=== PATIENT | male | born 1960 | race Caucasian/White ===

== ENCOUNTER 2018-09-22 12:43 | Emergency (ER) | payer MEDICARE, MEDICAID ==
[~2018-09-22] VITALS: Ht 170.2 cm; Wt 119.4 kg
[2018-09-22 12:51] VITALS: Ht 170.2 cm; Wt 119.4 kg
[2018-09-22] MEDS ORDERED: SODIUM CHLORIDE 0.9% 1L BAG IV* STA (13:08)
[2018-09-22] MEDS ORDERED: CEFEPIME 2GM/50 ML (PMX) 50 ML IVPB STA (13:08)
[2018-09-22] MEDS ORDERED: VANCOMYCIN 1 GM (PMX) 250 ML IVPB ONE (13:30)
[2018-09-22] MEDS ORDERED: ACETAMINOPHEN 500 MG TAB PO STA (13:45)
[2018-09-22] MEDS ORDERED: IOHEXOL 300MG/ML 150 ML BTL ONE (14:02)
[2018-09-22] MEDS ORDERED: SOD CHLORIDE 0.9% 100 ML ONE (14:03)
--- NOTE | 2018-09-22 14:03 | ERD ---
ER Documentation Chief Complaint Chief Complaint c/o fever x3 days, denies other symptoms HPI This is a 58-year-old male who says he has had fever for 3 days. The onset was with some abdominal and back pain which she says is gone now. He has no cough no dysuria no nausea vomiting but does have some diarrhea. Has some mild diffus e body aches and arthralgias. Some decrease in appetite. No headache no photophobia no neck pain ROS All systems reviewed and are negative except as per history of present illness. Medications Home Meds Reported Medications Duloxetine Hcl* (Duloxetine Hcl*) 30 Mg Capsule.dr, 30 MG PO DAILY, #30 CAP NOT STARTED TO TAKING YET 09/22/18 Levetiracetam* (Keppra*) 500 Mg Tablet, 500 MG PO BID, TAB 09/22/18 Alprazolam* (Xanax*) 0.5 Mg Tab, 0.5 MG PO DAILY PRN for ANXIETY, TAB 09/22/18 Lisinopril* (Lisinopril*) 10 Mg Tablet, 10 MG PO BID, #30 TAB 09/22/18 Allergies Allergies: Coded Allergies: No Known Allergy (Unverified , 09/22/18) PMhx/Soc Medical and Surgical Hx: pt denies Surgical Hx Hx Cardiac Disorders: Yes (HTN) Hx Alcohol Use: No Hx Substance Use: No Hx Tobacco Use: No Smoking Status: Never smoker FmHx Family History: No coronary disease Physical Exam Vitals Vital Signs Date Temp Pulse Resp B/P (MAP) Pulse Ox O2 O2 Flow FiO2 Time Delivery Rate 09/22/18 101.4 115 17 101/59 98 Room Air 15:35 (73) 09/22/18 103.1 14:01 09/22/18 103.1 13:56 09/22/18 102.7 129 20 130/65 96 12:51 (86) Physical Exam Const: Well-developed, well-nourished Head: Atraumatic, normocephalic Eyes: Normal Conjunctiva, PERRLA, EOMI, normal sclera, no nystagmus ENT: Normal External Ears, Nose and Mouth, moist mucus membranes. Neck: Full range of motion. No meningismus, no lymphadenopathy. Resp: Clear to auscultation bilaterally, no wheezing, rhonchi, rales Cardio: Regular rate and rhythm, no murmurs, S1 S2 present Abd: Soft, mild diffuse tenderness, non distended. Normal bowel sounds, no guarding or rebound, no pulsitile abdominal masses or bruits Skin: No petechiae or rashes, no ecchymosis , no maculopapular rash Back: No midline or flank tenderness Ext: No cyanosis, or edema, FROM x 4, normal inspection, neurovascular ly intact x 4 Neur: Awake and alert, STR 5/5 x 4, sensation intact x 4, no focal findings, cerebellum intact Psych: Normal Mood and Affect Result Diagram: 09/22/18 1318 09/22/18 1318 Results 24 hrs Laboratory Tests Test 09/22/18 13:07 09/22/18 13:18 09/22/18 15:12 09/22/18 15:44 POC Venous Lactate 1.9 mmol/L 0.6 mmol/L White Blood Count 19.4 10^3/ul Red Blood Count 5.17 10^6/ul Hemoglobin 15.0 g/dl Hematocrit 45.8 % Mean Corpuscular 88.6 fl Volume Mean Corpuscular 29.0 pg Hemoglobin Mean Corpuscular 32.8 g/dl Hemoglobin Concent Red Cell 12.9 % Distribution Width Platelet Count 182 10^3/UL Mean Platelet 10.7 fl Volume Immature 0.800 % Granulocytes % Neutrophils % 85.9 % Lymphocytes % 5.8 % Monocytes % 7.1 % Eosinophils % 0.1 % Basophils % 0.3 % Nucleated Red Blood 0.0 /100WBC Cells % Immature 0.160 10^3/ul Granulocytes # Neutrophils # 16.7 10^3/ul Lymphocytes # 1.1 10^3/ul Monocytes # 1.4 10^3/ul Eosinophils # 0.0 10^3/ul Basophils # 0.1 10^3/ul Nucleated Red Blood 0.0 10^3/ul Cells # Prothrombin Time 12.5 Sec Prothrombin Time 1.0 Ratio INR International 0.92 Normalized Ratio Activated 26.2 Sec Partial Thromboplas t Time Sodium Level 139 mmol/L Potassium Level 4.8 mmol/L Chloride Level 103 mmol/L Carbon Dioxide 25 mmol/L Level Anion Gap 11 Blood Urea Nitrogen 11 mg/dl Creatinine 0.98 mg/dl Est Glomerular > 60 mL/min Filtrat Rate mL/min Glucose Level 137 mg/dl Calcium Level 10.0 mg/dl Total Bilirubin 0.7 mg/dl Direct Bilirubin 0.00 mg/dl Indirect Bilirubin 0.7 mg/dl Aspartate Amino 31 IU/L Transf (AST/SGOT) Alanine 38 IU/L Aminotransferase (A LT/SGPT) Alkaline 88 IU/L Phosphatase Troponin I < 0.012 ng/ml Total Protein 7.3 g/dl Albumin 4.0 g/dl Globulin 3.30 g/dl Albumin/Globulin 1.21 Ratio Urine Color YELLOW Urine Clarity CLEAR Urine pH 7.0 Urine Specific 1.011 [place] Urine Ketones NEGATIVE mg/dL Urine Nitrite NEGATIVE mg/dL Urine Bilirubin NEGATIVE mg/dL Urine Urobilinogen NEGATIVE mg/dL Urine Leukocyte TRACE Antonella/ul Esterase Urine Microscopic 1 /HPF RBC Urine Microscopic 23 /HPF WBC Urine Hemoglobin NEGATIVE mg/dL Urine Glucose NEGATIVE mg/dL Urine Total Protein NEGATIVE mg/dl Current Medications Medications Dose Sig/Gregg Start Time Status Last (Trade) Ordered Route PRN Stop Time Admin Dose Reason Admin Sodium 3,580 ml BOLUS OVER 2 09/22/18 DC 09/22/18 Chloride HOURS STAT 13:08 09/22/18 13:33 (NS) IV* 13:10 Cefepime HCl 50 ml @ ONCE STAT 09/22/18 DC 09/22/18 100 mls/hr IVPB 13:08 09/22/18 13:32 13:37 Vancomycin 250 ml @ ONCE ONCE 09/22/18 DC 09/22/18 HCl 125 mls/hr IVPB 13:30 09/22/18 14:52 15:29 1,000 mg ONCE STAT 09/22/18 DC 09/22/18 Acetaminophen PO 13:45 09/22/18 14:01 (Tylenol 13:46 Tab) Iohexol 150 ml STK-MED 09/22/18 DC (Omnipaque ONCE .ROUTE 14:02 09/22/18 300mg/ ml) 14:03 Sodium 100 ml @ ud STK-MED 09/22/18 DC Chloride ONCE .ROUTE 14:03 09/22/18 14:04 Procedures/MDM Ordering MD: KRISTOPHER RUIZ DO Location: E/R Room/Bed: PROCEDURE: Chest x-ray CLINICAL INDICATION: Shortness of breath TECHNIQUE: Chest single view COMPARISON: None FINDINGS: The heart is normal in size. The pulmonary vessels are normal in caliber. The lungs are clear. The costophrenic angles are sharp. The visualized bony thorax is unremarkable. IMPRESSION: No acute cardiopulmonary disease. RPTAT: HH .Hesham Olivares MD, MD Date Time Electronically viewed and signed by .Hesham Olivares MD, MD on 09/22/2018 13:51 .W/ CC: KRISTOPHER RUIZ DO [id number] EKG: Rate/Rhythm: Sinus tachycardia heart rate 117, right axis deviation QRS, ST, QT: NORMAL NM, QRS, QT] Impression: abNORMAL EKG PROCEDURE: CT abdomen and pelvis with contrast CLINICAL INDICATION: Abdominal pain TECHNIQUE: Continues 2.5 mm axial images were obtained from the domes of the diaphragms to the inferior pubic rami following intravenous injection of 90cc of Isovue 300. The calculated dose length product (DLP) = 1656.44 mGy-cm. Exam CTDlvol = 22.7 mGy. One or more of the following dose reduction techniques were used: Automated exposure control, adjustment of the mA and or KV according to patient size, or use of iterative reconstruction technique. DICOM images are available. COMPARISON: None. FINDINGS: Lung bases are clear. No pleural pericardial fluid is seen. Liver, gallbladder, pancreas, spleen, adrenals, and kidneys are within normal limits. There is no obstructive uropathy. Aorta is normal in caliber without aneurysmal dilatation or dissection. No pathologically enlarged mesenteric lymph nodes are seen. There is mild thickening of the gastric antrum which may suggest gastritis/ulcer disease. The mid small bowel loops are borderline distended and contain fecalized material pattern may suggest a mild small bowel ileus versus small bowel enteritis. No high-grade obstruction is seen. There is no bowel wall pneumatosis. No free fluid, free air, abscess is noted in the upper abdomen CT pelvis: Images through the pelvis demonstrate no free fluid, free air, abscess. Bladder is normally distended. There is moderate prostatomegaly. Correlation with PSA levels recommended. Seminal vesicles are unremarkable. Evaluation of the colon demonstrates no diverticulosis, diverticulitis or acute colitis. There is mild constipation. Normal appendix and terminal ileum are identified. There are no pathologically enlarged iliac chain lymph nodes. No destructive bony lesions are seen IMPRESSION: 1. The mid small bowel loops are upper limits of normal in size and contain fecalized material. The pattern may suggest small-bowel enteritis versus mild small bowel ileus. No high-grade obstruction is seen.. 2. No associated free fluid, free air, or bowel wall pneumatosis. 3. Mild constipation. No colitis. 4. Normal appendix and terminal ileum. 5. Mild thickening of the gastric antrum suspicious for gastritis/ulcer disease. 6. Prostatomegaly. Recommend correlation with PSA level RPTAT: HH .Hesham Olivares MD, MD Date Time Electronically viewed and signed by .Hesham Olivares MD, MD on 09/22/2018 15:28 .W/ CC: KRISTOPHER RUIZ DO [id number] Patient CT scan shows some ileus but no obstruction. The patient is having diarrhea so may be an infectious diarrhea as a source of his elevated white blood count gave him some antibiotics here Vanco and cefepime. Patient is clinically well-appearing at this time. Will discharge home with some Cipro and Flagyl and treat diarrhea as his chest x-ray and urine look fine Departure Diagnosis: Primary Impression: Infectious diarrhea Additional Impressions: Fever Fever type: unspecified Qualified Codes: R50.9 - Fever, unspecified Ileus Condition: Stable KRISTOPHER RUIZ DO Sep 22, 2018 14:03
[2018-09-22] MEDS ORDERED: LISI10TA2 PO (15:30)
[2018-09-22] MEDS ORDERED: ALPR0.5T PO (15:31)
[2018-09-22] MEDS ORDERED: LEVE-5 PO (15:32)
[2018-09-22] MEDS ORDERED: DULO30CA47 PO (15:35)
[2018-09-22] MEDS ORDERED: CIPR500T4 PO (16:09)
[2018-09-22] MEDS ORDERED: METR500T PO (16:09)
[2018-09-22] MEDS ORDERED: DIPH1TAB PO (16:09)
[2018-09-22] MEDS ORDERED: IBUPROFEN 800 MG TAB PO ONE (16:30)
[2018-09-22 17:37] VITALS: BP 102/57; PULSE 104; RESP 17
== END 2018-09-22 17:42 | disposition home or self-care (01) ==
LOC: E/R 12:43
DX: A09 Infectious gastroenteritis and colitis, unspecified (principal); I10 Essential (primary) hypertension; K56.7 Ileus, unspecified; R10.9 Unspecified abdominal pain
CPT/HCPCS: 36415; 71045; 74177; 80053; 81001; 83605; 84484; 85025; 85610; 85730; 87040; 87086; 87400; 96361; 96365; 96366; 96367; 99285; J0692; J3370; J7030; Q9967; 93005

== ENCOUNTER 2018-10-22 08:28 | Emergency (ER) | payer MEDICARE, MEDICAID ==
[~2018-10-22] VITALS: Ht 170.2 cm; Wt 117.0 kg
[~2018-10-22 08:28] MED LIST: ALPR0.5T PO; CIPR500T4 PO; DIPH1TAB PO; DULO30CA47 PO; LEVE-5 PO; LISI10TA2 PO; METR500T PO
[2018-10-22 08:29] VITALS: BP 136/74; PULSE 74; RESP 19; Ht 170.2 cm; Wt 117.0 kg
[2018-10-22] MEDS ORDERED: ALPRAZOLAM 0.25 MG TAB PO ONE (09:00)
[2018-10-22] MEDS ORDERED: ALPR0.5T PO (09:08)
[2018-10-22] MEDS ORDERED: ONDANSETRON (ODT) 4 MG TAB ODT STA (09:27)
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
== END 2018-10-22 09:42 | disposition home or self-care (01) ==
LOC: FTE 08:28
DX: F41.9 Anxiety disorder, unspecified (principal); I10 Essential (primary) hypertension
CPT/HCPCS: 93005